=== PATIENT | female | born 1970 | race Caucasian/White ===

== ENCOUNTER 2018-07-25 02:10 | Emergency (ER) | payer BC ==
--- NOTE | 2018-07-25 02:22 | PDOC ---
History of Present Illness - General Chief Complaint: Pain Stated Complaint: EARACHE/HEADACHE Time Seen by Provider: 07/25/18 02:15 History Source: Patient Exam Limitations: No Limitations - History of Present Illness Initial Comments: 07/25/18 02:32 HISTORY OF PRESENT ILLNESS: This a 47-year-old woman past medical history of asthma presents emergency Department with congestion in bilateral ears and nose. Patient states congestion and pain started approximately 24 hours ago and has been unrelieved by OTC medications. Patient took a so therapeutic dose of Sudafed approximately 9:00 this evening. Patient denies dizziness, blurry vision , difficulty hearing, fevers, chills, sore throat, chest pain, shortness of breath. No recent travel or sick contacts. PAST MEDICAL HISTORY: asthma SURGICAL HISTORY: Denies ALLERGIES: No known drug allergies REVIEW OF SYSTEMS General/Constitutional: Denies fever or chills. Denies weakness, weight change. HEENT: Denies change in vision. Bilateral ear pain with L>R. No discharge. Denies sore throat. Cardiovascular: Denies chest pain or shortness of breath. Respiratory: Denies cough, wheezing, or hemoptysis. Gastrointestinal: Denies nausea, vomiting, diarrhea or constipation. Denies rectal bleeding. Genitourinary: Denies dysuria, frequency, or change in urination. Musculoskeletal: Denies joint or muscle swelling or pain. Denies neck or back pain. Skin and breasts: Denies rash or easy bruising. Neurologic: Denies headache, vertigo, loss of consciousness, or loss of sensation. Psychiatric: Denies depression or anxiety. Endocrine: Denies increased thirst. Denies abnormal weight change. Hematologic/Lymphatic: Denies anemia, easy bleeding, or history of blood clots. Allergic/Immunologic: Denies hives or skin allergy. Denies latex allergy. PHYSICAL EXAM General Appearance: Well-appearing, appropriately dressed. No apparent distress , no intoxication. HEENT: EOMI, PERRLA, normal voice, TMs with retractions bilaterally. Pharynx with cobblestoning present. No conjunctival pallor. No photophobia, scleral icterus. Neck: Supple. Trachea midline. No tenderness, rigidity, carotid bruit, stridor , lymphadenopathy, or thyromegaly. Respiratory/Chest: Lungs CTAB. No shortness of breath, chest tenderness, respiratory distress, accessory muscle use. No crackles, rales, rhonchi, stridor , wheezing, dullness Cardiovascular: RRR. S1, S2. No JVD, murmur, bradycardia, tachycardia. Vascular Pulses: Dorsalis-Pedis (R): 2+, Dorsalis-Pedis (L): 2+ Gastrointestinal/Abdominal: Normal bowel sounds. Abdomen soft, non-distended. No tenderness or rebound tenderness. No organomegaly, pulsatile mass, guarding, hernia, hepatomegaly, splenomegaly. Lymphatic: No adenopathy, tenderness. Musculoskeletal/Extremities: Normal inspection. FROM of all extremities, normal capillary refill. Pelvis Stable. No CVA tenderness. No tenderness to extremities, pedal edema, swelling, erythema or deformity. Integumentary: Appropriate color, dry, warm. No cyanosis, erythema, jaundice or rash Neurologic: business development manager II-XII intact. Fully oriented, alert. Appropriate mood/affect. Motor strength 5/5. No appreciable EOM palsy, facial droop or sensory deficit. Past History - Past Medical History Allergies/Adverse Reactions: Allergies Allergy/AdvReac Type Severity Reaction Status Date / Time No Known Allergies Allergy Verified 07/25/18 02:20 Home Medications: Ambulatory Orders Ipratropium [place] 30 ml NS BID PRN #120 spray 07/25/18 Pseudoephedrine HCl [Sudafed] 60 mg PO Q6H PRN #20 tablet 07/25/18 Asthma: Yes - Suicide/Smoking/Psychosocial Hx Smoking Status: No Smoking History: Never smoked Number of Cigarettes Smoked Daily: 0 Hx Alcohol Use: No Drug/Substance Use Hx: No Medical Decision Making - Medical Decision Making 07/25/18 02:36 A/P: 47-year-old woman with history of asthma with 1 day of nasal congestion and ear congestion TMs pearly barr with appropriate light reflex bilaterally. Bilateral retractions present No tenderness to palpation over her tragus or mastoid bilaterally Cobblestoning noted in the posterior oropharynx. Tonsils and uvula absent status post tonsillectomy No cervical lymphadenopathy palpated Lungs clear to auscultation bilaterally RRR. S1 and S2 present. Patient symptoms are consistent with an upper respiratory infection. We'll treat patient with DuoNeb's and Sudafed. Patient will likely be discharged with prescription for Atrovent nasal spray. 07/25/18 03:49 Pt with some relief of symptoms. I will discharge home with Rx for Atrovent nasal spray and Sudafed. Pt is in agreement with plan. *DC/Admit/Observation/Transfer Diagnosis at time of Disposition: Upper respiratory infection Qualifiers: URI type: unspecified viral URI Qualified Code(s): J06.9 - Acute upper respiratory infection, unspecified - Discharge Dispostion Disposition: HOME Condition at time of disposition: Stable Decision to Admit order: No - Prescriptions Prescriptions: Ipratropium [place] 30 ml NS BID PRN #120 spray PRN Reason: Nasal Congestion Pseudoephedrine HCl [Sudafed] 60 mg PO Q6H PRN #20 tablet PRN Reason: Nasal Congestion - Referrals Referrals: Barbie Calderon MD [Primary Care Provider] - - Patient Instructions Additional Instructions: Rest, drink lots of fluids: Teas, water, soups, Pedialyte Saltwater gargles Steamy showers/seem to face break up mucus Avoid contact with others until fevers and cough resolved Lots of handwashing and good hygiene Continue [id number]-[id number] medications for symptomatic relief Tylenol or Motrin for fever and pain Atrovent nasal spray 3 times a day as needed for nasal congestion Sudafed 60mg twice a day as needed for nasal congestion. Followup with private physician in one to 2 days as needed Return to emergency department for worsened symptoms, fevers, dehydration - Post Discharge Activity
[2018-07-25 02:24] VITALS: BP 114/80; PULSE 90; TEMP 97.9; BMI 64.2
[2018-07-25] MEDS ORDERED: ALBUTEROL SO4 2.5/IPRATROPIUM 0.5 INH SOL 3 ML VIAL.NEB. NEB ONE ×2 (02:32→02:39)
[2018-07-25] MEDS ORDERED: PSEUDOEPHEDRINE HCL 30 MG TABLET PO ONE (02:32)
[2018-07-25] MEDS ORDERED: PSEUDOEPHEDRINE HCL 60 MG TABLET ONE (02:39)
[2018-07-25] MEDS ORDERED: PSEUDOEPHEDRINE HCL 60 MG TABLET PO ONE (02:45)
[2018-07-25] MEDS ORDERED: IBUPROFEN 600 MG TABLET (FP) PO ONE ×2 (03:46→04:13)
[2018-07-25] MEDS ORDERED: diphenhydrAMINE HCL 50 MG CAPSULE PO ONE (03:48)
[2018-07-25] MEDS ORDERED: diphenhydrAMINE HCL 25 MG CAPSULE (FP) PO ONE (04:13)
== END 2018-07-25 04:41 | disposition home or self-care (01) ==
LOC: JER 02:10
PROC: 3E0F7GC Introduction of Other Therapeutic Substance into Respiratory Tract, Via Natural or Artificial Opening (ICD-10-PCS; principal; 2018-07-25)
DX: J06.9 Acute upper respiratory infection, unspecified (principal)
CPT/HCPCS: 99283-25; J7620

== ENCOUNTER 2020-10-19 18:06 | Emergency (ER) | payer BC ==
[2020-10-19 18:18] VITALS: BP 131/76; PULSE 68; BMI 29.7
[2020-10-19 18:19] VITALS: TEMP 97.2
== END 2020-10-19 18:48 | disposition home or self-care (01) ==
LOC: MERGE 18:06 → JERFT 18:06
DX: Z48.02 Encounter for removal of sutures (principal)
CPT/HCPCS: 99281-25